=== PATIENT | female | born 1995 | race Caucasian/White ===

== ENCOUNTER 2017-10-05 13:01 | Emergency (ER) | payer OTHER ==
[~2017-10-05] VITALS: Ht 162.6 cm; Wt 68.0 kg
[~2017-10-05 13:01] MED LIST: ANAPROX DS550 MG PO; CIPRO500 MG PO; IBUPROFEN600 MG PO; MACROBID 100 M100 MG PO; NAPROSYN375 MG PO; NORCO 5-325 TA1 EACH PO
[2017-10-05] MEDS ORDERED: AMOXICILLIN500 MG PO (13:12)
[2017-10-05] MEDS ORDERED: METHYLPREDNISOLO4 M1 PO (13:35)
[2017-10-05] MEDS ORDERED: ZITHROMAX250 MG PO (13:35)
== END 2017-10-05 13:40 | disposition home or self-care (01) ==
LOC: ED 13:01
DX: J40 Bronchitis, not specified as acute or chronic (principal); Z79.2 Long term (current) use of antibiotics
CPT/HCPCS: 99283

== ENCOUNTER 2020-03-31 22:23 | Emergency (ER) | payer OTHER ==
[~2020-03-31] VITALS: Ht 162.6 cm; Wt 68.0 kg
[~2020-03-31 22:23] MED LIST changes: +AMOXICILLIN500 MG PO; +METHYLPREDNISOLO4 M1 PO; +ZITHROMAX250 MG PO
--- OUTSIDE RECORDS SUMMARY | 2020-03-31 22:26 | XMS ---
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 [place] VISIT COUNT (12 MO.) [place] TOTAL 1 NOTE: Visits indicate total known visits. ED/UCC VISIT TRACKING (12 MO.) 03/31/2020 22:24 [facility] TYPE: Emergency COMPLAINT: - HEAD PAIN,VOMITING INPATIENT VISIT TRACKING (12 MO.) No inpatient visits to display in this time frame [email or web address]
== END 2020-03-31 23:39 | disposition home or self-care (01) ==
LOC: ED 22:23
DX: G43.909 Migraine, unspecified, not intractable, without status migrainosus (principal)
CPT/HCPCS: 96374; 96375; 99283-25; J1100; J1200; J1885; J2765